=== PATIENT | male | born 1990 | race African-American/Black ===

== ENCOUNTER 2018-10-17 16:32 | Emergency (ER) | payer SELFPAY ==
[~2018-10-17] VITALS: Ht 162.6 cm; Wt 87.0 kg
[2018-10-17] MEDS ORDERED: BACITRACIN ZINC OINT UDPKT TOP ONE (17:15)
[2018-10-17 18:15] VITALS: BP 137/84
== END 2018-10-17 18:17 | disposition home or self-care (01) ==
LOC: ER 16:32
DX: M79.645 Pain in left finger(s) (principal)
CPT/HCPCS: 29130; 73140; 99283